=== PATIENT | female | born 1955 | race Two or more races ===

== ENCOUNTER 2019-04-22 11:17 | Emergency (ER) | payer MEDICARE, MEDICAID ==
--- NOTE | 2019-04-22 12:54 | EDM.PDOC ---
ED HPI GENERAL MEDICAL PROBLEM - General Chief Complaint: Upper Extremity Injury/Pain Stated Complaint: sent clinic Time Seen by Provider: 04/22/19 11:35 Source of Information: Reports: Patient History Limitations: Reports: No Limitations - History of Present Illness INITIAL COMMENTS - FREE TEXT/NARRATIVE: Patient presented to the ED because of left arm pain. The pain originates from her neck,down to her left shoulder and arm. It is 3/10 and shock like sensation. She denies any chest pain. 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 - Related Data Allergies Allergy/AdvReac Type Severity Reaction Status Date / Time No Known Allergies Allergy Verified 04/22/19 11:51 Home Meds: Home Meds Atenolol/Chlorthalidone [Atenolol-Chlorthalidone 100-25] 1 tab DAILY 04/22/19 [ History] Gabapentin [Neurontin] 300 mg PO BID #60 cap 04/22/19 [Rx] Ibuprofen 600 mg TID PRN 04/22/19 [History] Past Medical History - Past Surgical History Female Surgical History: Reports: Section Social & Family History - Family History Family Medical History: Noncontributory Review of Systems - Review of Systems Review Of Systems: See Below Constitutional: Reports: No Symptoms Eyes: Reports: No Symptoms Ears: Reports: No Symptoms Nose: Reports: No Symptoms Mouth/Throat: Reports: No Symptoms Respiratory: Reports: No Symptoms Cardiovascular: Reports: No Symptoms. Denies: Chest Pain, Edema Musculoskeletal: Reports: No Symptoms Skin: Reports: No Symptoms Neurological: Reports: No Symptoms, Confusion Psychiatric: Reports: No Symptoms ED EXAM, GENERAL - Physical Exam Exam: See Below Exam Limited By: No Limitations General Appearance: Alert, No Apparent Distress Ears: Normal External Exam, Normal Canal Nose: Normal Inspection, Normal Mucosa, No Blood Throat/Mouth: Normal Inspection, Normal Lips, Normal Teeth, Normal Gums Head: Atraumatic, Normocephalic Neck: Normal Inspection, Supple, Non-Tender, Full Range of Motion Respiratory/Chest: No Respiratory Distress, Lungs Clear, Normal Breath Sounds, No Accessory Muscle Use, Chest Non-Tender Cardiovascular: Normal Peripheral Pulses, Regular Rate, Rhythm, No Edema, No Gallop, No JVD, No Murmur GI/Abdominal: Normal Bowel Sounds, Soft, Non-Tender, No Organomegaly, No Distention, No Abnormal Bruit Extremities: Normal Inspection, Normal Range of Motion, Non-Tender Neurological: Alert, Oriented, CN II-XII Intact, Normal Cognition, Normal Gait, Normal Reflexes, No Motor/Sensory Deficits Course - Vital Signs Text/Narrative:: labs,ekg discussed with patient and family EKG-NSR Trop-neg Last Recorded V/S: Last Vital Signs Temp 36.5 C 04/22/19 11:20 Pulse 69 04/22/19 13:00 Resp 18 04/22/19 13:00 BP 140/64 04/22/19 13:00 Pulse Ox 97 04/22/19 13:00 - Orders/Labs/Meds Orders: Active Orders 24 hr Category Date Time Status EKG Documentation Completion [RC] ASDIRECTED Care 04/22/19 12:11 Active EKG 12 Lead [EK] Routine Ther 04/22/19 12:11 Ordered Labs: Laboratory Tests 04/22/19 04/22/19 04/22/19 Range/Units 11:20 11:20 11:20 WBC 14.4 H (4.5-12.0) X10-3/uL RBC 5.06 (3.23-5.20) x10(6)uL Hgb 15.4 (11.5-15.5) g/dL Hct 45.9 (30.0-51.3) % MCV 90.8 (80-96) fL MCH 30.5 (27.7-33.6) pg MCHC 33.5 (32.2-35.4) g/dL RDW 12.8 (11.5-15.5) % Plt Count 370 H (125-369) X10(3)uL MPV 9.1 (7.4-10.4) fL Neut % (Auto) 75.0 (46-82) % Lymph % (Auto) 18.2 (13-37) % [place] % (Auto) 5.5 (4-12) % Eos % (Auto) 1 (1.0-5.0) % Baso % (Auto) 0 (0-2) % Neut # (Auto) 10.8 H (1.6-8.3) # Lymph # (Auto) 2.6 (0.6-5.0) # [place] # (Auto) 0.8 (0.0-1.3) # Eos # (Auto) 0.1 (0.0-0.8) # Baso # (Auto) 0.1 (0.0-0.2) # Sodium 137 (135-145) mmol/L Potassium 3.5 (3.5-5.3) mmol/L Chloride 99 L (100-110) mmol/L Carbon Dioxide 33 H (21-32) mmol/L BUN 14 (7-18) mg/dL Creatinine 0.6 (0.55-1.02) mg/dL Est Cr Clr Drug Dosing 73.93 mL/min Estimated GFR (MDRD) > 60 (>60) BUN/Creatinine Ratio 23.3 H (9-20) Glucose 109 (80-116) mg/dL Calcium 9.7 (8.6-10.2) mg/dL Total Bilirubin 0.4 (0.1-1.3) mg/dL AST 28 H (5-25) IU/L ALT 31 (12-36) U/L Alkaline Phosphatase 119 H (56-112) IU/L Troponin I < 0.017 L (<0.017-0.056) ng/mL Total Protein 8.0 (6.0-8.0) g/dL Albumin 3.6 (3.2-4.6) g/dL Globulin 4.4 g/dL Albumin/Globulin Ratio 0.8 Departure - Departure Time of Disposition: 12:50 Disposition: Home, Self-Care 01 Condition: Good Clinical Impression: Radicular pain in left arm - Discharge Information Prescriptions: Gabapentin [Neurontin] 300 mg PO BID #60 cap Instructions: Radicular Pain Referrals: PCP,None [Ordering Only Provider] - Forms: ED Department Discharge Additional Instructions: please read discharge instructions on radicular pain gabapentin 300 mg twice daily ibuprofen 400 mg with tylenol every 4-6 hours as needed for pain follow up as needed - My Orders Last 24 Hours: My Active Orders 04/22/19 12:11 EKG Documentation Completion [RC] ASDIRECTED EKG 12 Lead [EK] Routine - Assessment/Plan Last 24 Hours: My Active Orders 04/22/19 12:11 EKG Documentation Completion [RC] ASDIRECTED EKG 12 Lead [EK] Routine
[2019-04-22 13:46] VITALS: BP 140/64; PULSE 69
== END 2019-04-22 13:07 | disposition home or self-care (01) ==
LOC: FB.ED 11:17
DX: M54.10 Radiculopathy, site unspecified (principal)
CPT/HCPCS: 36415; 80053; 84484; 85025; 93005; 99283; 99283-25

== ENCOUNTER 2023-09-26 20:14 | Emergency (ER) | payer MEDICARE, MEDICAID ==
[2023-09-26] MEDS ORDERED: Sulfamethoxazole/Trimethoprim 800-160 MG Tab PO ONE (20:15)
[2023-09-26 20:58] LABS: BILIRUBIN,URINE NEGATIVE (NEGATIVE); GLUCOSE,URINE NORMAL (NORMAL); KETONES,URINE NEGATIVE (NEGATIVE); LEUKOCYTE ESTERASE,URINE SMALL (NEGATIVE); NITRITE,URINE POSITIVE (NEGATIVE); OCCULT BLOOD,URINE MODERATE (NEGATIVE); PROTEIN,URINE NEGATIVE (NEGATIVE); UROBILINOGEN,URINE NORMAL (NEGATIVE)
[2023-09-26 21:03] LABS: APPEARANCE,URINE SLIGHTLY CLOUDY (CLEAR); BACTERIA,URINE MANY (NS); COLOR,URINE YELLOW (YELLOW); RBC,URINE 0-5 (0-5); SQUAMOUS EPITHELIAL CELLS,UR FEW (NS,R,O)
[2023-09-26] MEDS: Lidocaine 4% 1 each Patch TOP SCH (21:24)
[2023-09-26] MEDS: Cyclobenzaprine 10 MG Tab PO ONE (21:24)
[2023-09-26] MEDS: traMADol 50 MG Tab PO ONE (21:24)
[2023-09-26 21:42] VITALS: BP 166/69; PULSE 69
== END 2023-09-26 21:42 | disposition home or self-care (01) ==
LOC: FB.ED 20:14
DX: S39.012A Strain of muscle, fascia and tendon of lower back, initial encounter (principal); N39.0 Urinary tract infection, site not specified; I10 Essential (primary) hypertension; E66.9 Obesity, unspecified; F17.210 Nicotine dependence, cigarettes, uncomplicated; Z79.899 Other long term (current) drug therapy; Z86.19 Personal history of other infectious and parasitic diseases; Z86.16 Personal history of COVID-19; Z68.27 Body mass index [BMI] 27.0-27.9, adult; X50.0XXA Overexertion from strenuous movement or load, initial encounter
CPT/HCPCS: 81001; 87086; 87088; 87186; 99283; A9270-GY

== ENCOUNTER 2025-02-21 18:13 | Emergency (ER) | payer MEDICARE, MEDICAID ==
[2025-02-21] MEDS ORDERED: Sodium Chloride 0.9% 10 ML Syringe FLUSH PRN (19:26)
[2025-02-21 19:57] LABS: BLOOD UREA NITROGEN,BUN 32 mg/dL (7-18); CARBON DIOXIDE,CO2 29 mmol/L (21-32); CHLORIDE,CL 95 mmol/L (100-110); CREATININE 0.9 mg/dL (0.55-1.02); EST CRCL DRUG DOSING (CG) 45.34 mL/min; ESTIMATED GFR 68 mL/min (>60); GLUCOSE RANDOM 130 mg/dL (80-116); MEAN PLATELET VOLUME 8.1 fL (7.1-12.4); PLATELET COUNT,PLT 293 x10(3)uL (151-488); POTASSIUM,K 4.0 mmol/L (3.5-5.3); RED BLOOD CELL COUNT 4.16 x10(6)uL (3.60-5.20); RED CELL DISTRIBUTION WIDTH 14.9 % (12.3-16.5); SODIUM,NA 133 mmol/L (135-145); WHITE BLOOD CELL COUNT,WBC 7.8 x10-3/uL (3.0-10.3)
[2025-02-21 20:03] LABS: A/G RATIO 0.8; ALANINE AMINOTRANSFERASE,ALT 31 U/L (12-36); ASPARTATE AMNIOTRANSFERASE,AST 36 IU/L (5-25); BILIRUBIN TOTAL 0.7 mg/dL (0.1-1.3); PROTEIN TOTAL,TP 7.6 g/dL (6.0-8.0)
[2025-02-21] MEDS: Ondansetron 4 MG/2 ML SDV IVPUSH ONE (20:06)
[2025-02-21 20:13] LABS: LACTIC ACID 2.0 mmol/L (0.4-2.0)
[2025-02-21 20:20] LABS: EOSINOPHILS PERCENT MAN 1 % (0-5); LYMPHOCYTES PERCENT MAN 13 % (13-37); MONOCYTES PERCENT MAN 1 % (4-12); SEG NEUTROPHILS PERCENT MAN 85 % (46-82)
[2025-02-21 20:25] LABS: GLUCOSE,URINE NORMAL (NORMAL); OCCULT BLOOD,URINE MODERATE (NEGATIVE)
[2025-02-21 20:30] LABS: APPEARANCE,URINE CLOUDY (CLEAR)
[2025-02-21 20:31] LABS: SQUAMOUS EPITHELIAL CELLS,UR FEW (NS,R,O)
[2025-02-21 22:30] VITALS: BP 116/53; PULSE 77
== END 2025-02-21 22:16 | disposition home or self-care (01) ==
LOC: FB.ED 18:13
DX: E86.0 Dehydration (principal); E87.1 Hypo-osmolality and hyponatremia; N30.01 Acute cystitis with hematuria; C34.90 Malignant neoplasm of unspecified part of unspecified bronchus or lung; I10 Essential (primary) hypertension; E66.9 Obesity, unspecified; Z68.27 Body mass index [BMI] 27.0-27.9, adult; Z86.16 Personal history of COVID-19; Z87.891 Personal history of nicotine dependence; Z88.6 Allergy status to analgesic agent
CPT/HCPCS: 36415; 80053; 81001; 83605; 85025; 86140; 87086; 87088; 87186; 96361; 96374; 96375; 99284; J0696; J2405; J7030

== ENCOUNTER 2025-03-19 13:59 | Emergency (ER) | payer MEDICARE, MEDICAID ==
[2025-03-19 14:44] LABS: GLUCOSE,URINE NORMAL (NORMAL); OCCULT BLOOD,URINE TRACE (NEGATIVE)
[2025-03-19] MEDS ORDERED: Sodium Chloride 0.9% 10 ML Syringe FLUSH PRN (14:48)
[2025-03-19 14:51] LABS: APPEARANCE,URINE CLEAR (CLEAR); SQUAMOUS EPITHELIAL CELLS,UR FEW (NS,R,O)
[2025-03-19] MEDS: Ondansetron 4 MG/2 ML SDV IVPUSH ONE (14:52)
[2025-03-19 14:56] LABS: BASOPHILS ABSOLUTE AUTO 0.0 x10-3/uL (0.0-0.1); BASOPHILS PERCENT AUTO 2.0 % (0.2-1.5); EOSINOPHILS ABSOLUTE AUTO 0.0 x10-3/uL (0.0-0.8); EOSINOPHILS PERCENT AUTO 0.3 % (0.6-8.1); LYMPHOCYTES ABSOLUTE AUTO 0.7 x10-3/uL (1.0-4.4); LYMPHOCYTES PERCENT AUTO 33.1 % (18.4-52.1); MEAN PLATELET VOLUME 7.7 fL (7.1-12.4); MONOCYTES ABSOLUTE AUTO 0.2 x10-3/uL (0.3-1.0); MONOCYTES PERCENT AUTO 6.8 % (4.4-15.7); NEUTROPHILS ABSOLUTE AUTO 1.3 x10-3/uL (1.5-6.3); NEUTROPHILS PERCENT AUTO 57.8 % (30.8-76.2); PLATELET COUNT,PLT 157 x10(3)uL (151-488); RED CELL DISTRIBUTION WIDTH 17.9 % (12.3-16.5); WHITE BLOOD CELL COUNT,WBC 2.2 x10-3/uL (3.0-10.3)
[2025-03-19 15:01] LABS: BLOOD UREA NITROGEN,BUN 22 mg/dL (7-18); CARBON DIOXIDE,CO2 28 mmol/L (21-32); CHLORIDE,CL 95 mmol/L (100-110); CREATININE 0.8 mg/dL (0.55-1.02); EST CRCL DRUG DOSING (CG) 51.01 mL/min; ESTIMATED GFR 79 mL/min (>60); GLUCOSE RANDOM 156 mg/dL (80-116); POTASSIUM,K 3.3 mmol/L (3.5-5.3); SODIUM,NA 131 mmol/L (135-145)
[2025-03-19 15:04] LABS: RED BLOOD CELL COUNT 3.60 x10(6)uL (3.60-5.20)
[2025-03-19 15:07] LABS: A/G RATIO 0.9; ALANINE AMINOTRANSFERASE,ALT 22 U/L (12-36); ASPARTATE AMNIOTRANSFERASE,AST 18 IU/L (5-25); BILIRUBIN TOTAL 0.3 mg/dL (0.1-1.3); PROTEIN TOTAL,TP 7.5 g/dL (6.0-8.0)
[2025-03-19 17:29] VITALS: BP 124/65; PULSE 69
== END 2025-03-19 17:23 | disposition home or self-care (01) ==
LOC: FB.ED 13:59
DX: E86.0 Dehydration (principal); R79.89 Other specified abnormal findings of blood chemistry; N39.0 Urinary tract infection, site not specified; I10 Essential (primary) hypertension; E66.9 Obesity, unspecified; F17.200 Nicotine dependence, unspecified, uncomplicated; D84.9 Immunodeficiency, unspecified; Z88.6 Allergy status to analgesic agent; Z68.43 Body mass index [BMI] 50.0-59.9, adult
CPT/HCPCS: 36415; 80053; 81001; 83605; 83735; 85025; 86140; 96361; 96374; 96375; 99284-25; J0696; J2405; J7030

== ENCOUNTER 2025-03-21 05:59 | Emergency (ER) | payer MEDICARE, MEDICAID ==
[2025-03-21 06:32] LABS: GLUCOSE,URINE NORMAL (NORMAL); OCCULT BLOOD,URINE TRACE (NEGATIVE)
[2025-03-21 06:42] LABS: RED BLOOD CELL COUNT 3.50 x10(6)uL (3.60-5.20)
[2025-03-21 06:46] LABS: APPEARANCE,URINE CLEAR (CLEAR)
[2025-03-21 06:47] LABS: SQUAMOUS EPITHELIAL CELLS,UR OCCASIONAL (NS,R,O)
[2025-03-21 06:48] LABS: MEAN PLATELET VOLUME 8.0 fL (7.1-12.4); PLATELET COUNT,PLT 111 x10(3)uL (151-488); RED CELL DISTRIBUTION WIDTH 18.3 % (12.3-16.5)
[2025-03-21 06:49] LABS: BLOOD UREA NITROGEN,BUN 12 mg/dL (7-18); CARBON DIOXIDE,CO2 28 mmol/L (21-32); CHLORIDE,CL 98 mmol/L (100-110); CREATININE 0.5 mg/dL (0.55-1.02); EST CRCL DRUG DOSING (CG) 81.62 mL/min; ESTIMATED GFR 100 mL/min (>60); GLUCOSE RANDOM 134 mg/dL (80-116); POTASSIUM,K 3.3 mmol/L (3.5-5.3); SODIUM,NA 134 mmol/L (135-145)
[2025-03-21] MEDS: hydrOXYzine HCl 50 MG/ML SDV IM ONE (06:50)
[2025-03-21 06:55] LABS: A/G RATIO 0.9; ALANINE AMINOTRANSFERASE,ALT 21 U/L (12-36); ASPARTATE AMNIOTRANSFERASE,AST 17 IU/L (5-25); BILIRUBIN TOTAL 0.2 mg/dL (0.1-1.3); PROTEIN TOTAL,TP 7.4 g/dL (6.0-8.0); WHITE BLOOD CELL COUNT,WBC 1.6 x10-3/uL (3.0-10.3)
[2025-03-21 07:00] LABS: LYMPHOCYTES PERCENT MAN 30 % (13-37); MONOCYTES PERCENT MAN 10 % (4-12); SEG NEUTROPHILS PERCENT MAN 60 % (46-82)
[2025-03-21] MEDS ORDERED: Sodium Chloride 0.9% 10 ML Syringe FLUSH PRN (07:28)
[2025-03-21 08:03] VITALS: PULSE 80
[2025-03-21 09:45] VITALS: BP 125/57
== END 2025-03-21 09:25 ==
LOC: FB.ED 05:59
DX: M62.830 Muscle spasm of back (principal); I10 Essential (primary) hypertension; F17.200 Nicotine dependence, unspecified, uncomplicated; Z88.8 Allergy status to other drugs, medicaments and biological substances; Z79.899 Other long term (current) drug therapy
CPT/HCPCS: 36415; 71046; 74176; 80053; 81001; 83605; 83735; 84484; 85025; 86140; 87040; 93005; 93010; 96372; 96374; 99284; 99285; J0692; J2270; J3410; J7030

== ENCOUNTER 2025-03-24 02:49 | Emergency (ER) | payer MEDICARE, MEDICAID ==
[2025-03-24] MEDS: hydrOXYzine HCl 50 MG/ML SDV IM ONE (03:13)
[2025-03-24 03:36] VITALS: BP 146/75; PULSE 106
== END 2025-03-24 03:40 | disposition home or self-care (01) ==
LOC: FB.ED 02:49
DX: S39.012A Strain of muscle, fascia and tendon of lower back, initial encounter (principal); M62.830 Muscle spasm of back; I10 Essential (primary) hypertension; F17.200 Nicotine dependence, unspecified, uncomplicated; Z88.5 Allergy status to narcotic agent; Z79.899 Other long term (current) drug therapy; X58.XXXA Exposure to other specified factors, initial encounter
CPT/HCPCS: 96372; 99283; A9270; J2270; J3410

== ENCOUNTER 2025-03-27 16:54 | Emergency (ER) | payer MEDICARE, MEDICAID ==
[2025-03-27 17:24] LABS: MEAN PLATELET VOLUME 6.9 fL (7.1-12.4); PLATELET COUNT,PLT 254 x10(3)uL (151-488); RED BLOOD CELL COUNT 3.41 x10(6)uL (3.60-5.20); RED CELL DISTRIBUTION WIDTH 19.5 % (12.3-16.5); WHITE BLOOD CELL COUNT,WBC 14.2 x10-3/uL (3.0-10.3)
[2025-03-27 17:33] LABS: A/G RATIO 0.9; ALANINE AMINOTRANSFERASE,ALT 15 U/L (12-36); ASPARTATE AMNIOTRANSFERASE,AST 28 IU/L (5-25); BILIRUBIN TOTAL 0.3 mg/dL (0.1-1.3); BLOOD UREA NITROGEN,BUN 7 mg/dL (7-18); CARBON DIOXIDE,CO2 28 mmol/L (21-32); CHLORIDE,CL 98 mmol/L (100-110); CREATININE 0.6 mg/dL (0.55-1.02); ESTIMATED GFR 96 mL/min (>60); GLUCOSE RANDOM 164 mg/dL (80-116); POTASSIUM,K 2.7 mmol/L (3.5-5.3); PROTEIN TOTAL,TP 7.0 g/dL (6.0-8.0); SODIUM,NA 135 mmol/L (135-145)
[2025-03-27 17:40] LABS: BAND PERCENT MAN 4 % (0-6); LYMPHOCYTES PERCENT MAN 12 % (13-37); MONOCYTES PERCENT MAN 16 % (4-12); NRBC MANUAL 2 /100WBC (0-0); SEG NEUTROPHILS PERCENT MAN 68 % (46-82)
[2025-03-27] MEDS: Potassium Chloride 20 MEQ Tab.ER PO ONE (18:16)
[2025-03-27 18:56] VITALS: BP 160/70; PULSE 111
== END 2025-03-27 19:01 | disposition home or self-care (01) ==
LOC: FB.ED 16:54
DX: M10.9 Gout, unspecified (principal); E87.6 Hypokalemia; I10 Essential (primary) hypertension; F17.210 Nicotine dependence, cigarettes, uncomplicated; Z88.5 Allergy status to narcotic agent; Z79.899 Other long term (current) drug therapy
CPT/HCPCS: 36415; 73110; 80053; 84550; 85025; 86140; 99283; A9270

== ENCOUNTER 2025-03-28 23:10 | Emergency (ER) | payer MEDICARE, MEDICAID ==
[2025-03-28 23:33] VITALS: BP 150/73; PULSE 109
== END 2025-03-29 | disposition home or self-care (01) ==
LOC: FB.ED 23:10
DX: S39.012A Strain of muscle, fascia and tendon of lower back, initial encounter (principal); I10 Essential (primary) hypertension; E66.9 Obesity, unspecified; M19.90 Unspecified osteoarthritis, unspecified site; Z79.899 Other long term (current) drug therapy; Z88.8 Allergy status to other drugs, medicaments and biological substances; Z79.1 Long term (current) use of non-steroidal anti-inflammatories (NSAID); Z68.30 Body mass index [BMI] 30.0-30.9, adult; X58.XXXA Exposure to other specified factors, initial encounter
CPT/HCPCS: 99283; A9270